=== PATIENT | male | born 1965 | race African-American/Black ===

== ENCOUNTER 2020-05-16 13:09 | Emergency (ER) | payer MEDICAID ==
[~2020-05-16] VITALS: Ht 177.8 cm; Wt 90.0 kg
[2020-05-16] MEDS ORDERED: TETANUS, DIPHTHERIA, PERTUSSIS VAC/PF 0.5ML (>7YR OLD) IM ONE (15:45)
[2020-05-16] MEDS ORDERED: ACETAMINOPHEN WITH CODEINE 300/30MG TABLET PO ONE (15:45)
[2020-05-16 15:57] VITALS: BP 163/94
== END 2020-05-16 15:58 | disposition home or self-care (01) ==
LOC: ER 13:29
DX: S71.112A Laceration without foreign body, left thigh, initial encounter (principal); W19.XXXA Unspecified fall, initial encounter; Y93.89 Activity, other specified; Y92.89 Other specified places as the place of occurrence of the external cause; Y99.8 Other external cause status
CPT/HCPCS: 90471; 90715; 99283

== ENCOUNTER 2020-10-21 20:42 | Emergency (ER) | payer MEDICAID ==
[~2020-10-21] VITALS: Ht 188 cm; Wt 100.0 kg
[2020-10-21 20:45] VITALS: BP 220/100
[2020-10-21] MEDS ORDERED: SODIUM CHLORIDE 0.9% 1,000 ML IV ONE (22:15)
== END 2020-10-22 00:43 | disposition left against medical advice (07) ==
LOC: ER 20:42
DX: Z13.9 Encounter for screening, unspecified (principal); I10 Essential (primary) hypertension; F12.10 Cannabis abuse, uncomplicated; F17.290 Nicotine dependence, other tobacco product, uncomplicated
CPT/HCPCS: 82962; 99283; 99406; J7030

== ENCOUNTER 2021-01-09 17:26 | Inpatient (IN) | payer MEDICAID ==
[~2021-01-09] VITALS: Ht 182.9 cm; Wt 90.7 kg
[2021-01-09] MEDS ORDERED: HYDR-4350 PO (17:42)
[2021-01-09] MEDS ORDERED: HYDROCODONE/ACETAMINOPHEN 10/325MG TABLET PO ONE (19:30)
[2021-01-10 01:50] LABS: BASOPHILS % 0.7 % (0.0-2.0); EOSINOPHILS % 1.1 % (0.0-5.0); HEMATOCRIT. 41.5 % (42.0-52.0); HEMOGLOBIN. 14.1 g/dL (14.0-18.0); LYMPHOCYTES % 50.1 % (20.0-50.0); MEAN CORPUSCULAR VOLUME 94.2 fL (80.0-94.0); MEAN PLATELET VOLUME 8.7 fl (7.4-10.4); MONOCYTES % 11.3 % (2.0-8.0); NEUTROPHILS % 36.8 % (40.0-76.0); PLATELET 290 x1000/uL (130-400); RED CELL DISTRIBUTION WIDTH 13.2 % (11.6-14.6)
[2021-01-10 01:59] LABS: CHLORIDE 108 mEq/L (98-107)
[2021-01-10 02:49] LABS: INR 0.9; PARTIAL THROMBOPLASTIN TIME 27.2 sec (23.4-31.0); PROTHROMBIN TIME 9.7 sec (9.6-11.0)
[2021-01-10] MEDS ORDERED: IOHEXOL-350 100 ML BOTTLE ONE (05:40)
[2021-01-10] MEDS ORDERED: ENOXAPARIN 100MG/ML SYR SUBCUT NR (05:45)
[2021-01-10] MEDS ORDERED: MORPHINE SULFATE 2 MG/ML CPJ (NOT FOR IM USE) IV PRN (06:00)
[2021-01-10] MEDS ORDERED: HEPARIN 25,000 UNITS PREMIX 250 ML IV SCH (06:00)
[2021-01-10] MEDS ORDERED: HEPARIN BOLUS PRN aPTT <36 IV ×2 (06:00→12:00)
[2021-01-10] MEDS ORDERED: HEPARIN BOLUS PRN aPTT 37-44 IV ×2 (06:00→12:00)
[2021-01-10] MEDS ORDERED: HEPARIN 80 UNITS/KG BOLUS IV SCH ×2 (06:00→06:15)
[2021-01-10] MEDS ORDERED: ONDANSETRON HCL 4MG/2ML INJ IV PRN (08:45)
[2021-01-10] MEDS: HYDROCODONE/ACETAMINOPHEN 10/325MG TABLET PO PRN ×2 (11:46→21:32)
[2021-01-10 13:45] VITALS: BP 152/100
[2021-01-10 16:11] VITALS: BP 104/84
[2021-01-10 20:00] VITALS: BP 120/97
[2021-01-11] VITALS: BP 122/84
[2021-01-11 01:50] LABS: *AMPHETAMINES SCREEN URINE NEGATIVE (NEGATIVE); *BARBITURATES SCREEN URINE NEGATIVE (NEGATIVE)
[2021-01-11 01:51] LABS: *BENZODIAZEPINES SCREEN URINE NEGATIVE (NEGATIVE); *COCAINE SCREEN URINE PRESUMTIVE POSITIVE (NEGATIVE); CANNABINOID URINE SCREEN PRESUMTIVE POSITIVE (NEGATIVE); METHADONE URINE SCREEN NEGATIVE (NEGATIVE); OPIATES URINE SCREEN PRESUMTIVE POSITIVE (NEGATIVE); PHENCYCLIDINE URINE SCREEN NEGATIVE (NEGATIVE)
[2021-01-11 04:00] VITALS: BP 154/98
[2021-01-11] MEDS: HYDROCODONE/ACETAMINOPHEN 10/325MG TABLET PO PRN ×3 (04:36→10:34)
[2021-01-11 08:52] VITALS: BP 149/100
[2021-01-11] MEDS ORDERED: HYDR-4009 PO (13:27)
[2021-01-11 13:38] VITALS: BP 145/98
[2021-01-11 13:57] VITALS: BP 145/98
== END 2021-01-11 17:02 | disposition home or self-care (01) | DRG 347 ==
LOC: ER 17:26 → MICUSO 23:16 → 6WST 01-10 12:06
PROVIDERS: ADMIT Internal Medicine; ATTEND Internal Medicine
DX: S12.500A Unspecified displaced fracture of sixth cervical vertebra, initial encounter for closed fracture (principal); E11.9 Type 2 diabetes mellitus without complications; E44.1 Mild protein-calorie malnutrition; E87.8 Other disorders of electrolyte and fluid balance, not elsewhere classified; I10 Essential (primary) hypertension; I82.C21 Chronic embolism and thrombosis of right internal jugular vein; I80.8 Phlebitis and thrombophlebitis of other sites; V89.2XXA Person injured in unspecified motor-vehicle accident, traffic, initial encounter; Y92.410 Unspecified street and highway as the place of occurrence of the external cause; Z79.891 Long term (current) use of opiate analgesic; Z79.899 Other long term (current) drug therapy; Z68.27 Body mass index [BMI] 27.0-27.9, adult; Y93.89 Activity, other specified; Y99.8 Other external cause status; F14.90 Cocaine use, unspecified, uncomplicated; F12.90 Cannabis use, unspecified, uncomplicated
CPT/HCPCS: 36415; 70498; 73030; 80053; 80305; 85025; 93005; 93971; 99285; J1644; J2270; L0172; Q9967